=== PATIENT | male | born 1935 | race Caucasian/White ===

== ENCOUNTER 2016-10-29 16:31 | Inpatient (IN) | payer MEDICARE, OTHER ==
[2016-10-29] MEDS ORDERED: COREG3.125 M1 PO ×2 (16:52→17:51)
[2016-10-29] MEDS ORDERED: LIPITOR80 M1 PO (16:52)
[2016-10-29] MEDS ORDERED: ROBAXIN500 M1 PO (16:53)
[2016-10-29] MEDS ORDERED: NORCO 5-325 TA1 EACH PO (16:53)
[2016-10-29] MEDS ORDERED: FLOMAX0.4 M1 PO (16:53)
[2016-10-29] MEDS ORDERED: ALDACTONE25 M1 PO (16:54)
[2016-10-29] MEDS ORDERED: SINGULAIR10 M1 PO (16:54)
[2016-10-29] MEDS ORDERED: OMEPRAZOLE40 M2 PO (16:54)
[2016-10-29] MEDS ORDERED: PROBIOTIC1 EAC9 PO (16:54)
[2016-10-29] MEDS ORDERED: COUMADIN3 M1 PO (16:55)
[2016-10-29] MEDS ORDERED: [UNRECOGNIZED DRUG - OTHER] PO (17:55)
[2016-10-29] MEDS ORDERED: [UNRECOGNIZED DRUG - OTHER] (17:57)
[2016-10-29] MEDS ORDERED: ASPIRIN EC81 MG PO (17:57)
[2016-10-30 02:19] LABS: BASO % 0.1 % (0-2); EOS % 0.1 % (0-7); HCT-HEMATOCRIT 44.3 % (36.0-53.5); HGB-HEMOGLOBIN 15.2 gm/dl (13.5-17.0); IMMATURE GRANULOCYTES ABSOLUTE 0.06 tho/cmm (0-0.03); IMMATURE GRANULOCYTES PERCENT 0.4 % (0-0.3); LYMPH % 3.7 % (20-45); LYMPH ABSOLUTE COUNT 0.6 tho/cmm (0.8-4.5); MCH (MEAN CORPUSCULAR HGB) 31.8 pg (28.0-32.0); MCHC MEAN CORPUSCULAR HGB CONC 34.3 % (32.0-36.0); MCV (MEAN CELL VOLUME) 92.7 fl (82.0-96.0); MEAN PLATELET VOLUME 9.9 cmc (9.4-12.4); MONO % 9.6 % (0-12); MONOCYTE ABSOLUTE COUNT 1.5 tho/cmm (0.0-1.2); NEUTROPHIL ABSOLUTE COUNT 13.6 tho/cmm (1.6-8.0); NEUTROPHIL-AUTOMATED 13.6 tho/cmm (1.6-8.0); NEUTROPHILS % 86.1 % (40-80); PLATELET COUNT 125 tho/cmm (150-450); RED BLOOD COUNT 4.78 mil/cmm (4.40-5.70); RED CELL DISTRIBUTION WIDTH 14.7 % (12.4-16.4); WHITE BLOOD COUNT 15.8 tho/cmm (4.0-10.0)
[2016-10-30 02:22] LABS: INR 2.1 INR (0.9-1.1)
[2016-10-30 02:43] LABS: ALB/GLOB RATIO 0.9 (0.8-2.0); ALKALINE PHOSPHATASE 84 U/L (33-138); ALT/SGPT 79 U/L (12-78); AMYLASE 37 U/L (20-90); ANION GAP 12 mmol/L (0-20); AST/SGOT 122 U/L (10-40); BILIRUBIN,TOTAL 1.7 mg/dl (0.0-1.5); BLOOD UREA NITROGEN 17 mg/dl (6-24); CALCIUM 9.2 mg/dl (8.5-10.5); CARBON DIOXIDE-VENOUS 25 mmol/L (22-32); CHLORIDE 107 mmol/l (96-110); CREATININE 1.36 mg/dl (0.60-1.30); GLUCOSE 138 mg/dL (70-110); LIPASE 120 U/L (73-393); POTASSIUM 4.6 mmol/L (3.7-5.1); SODIUM 139 mmol/L (135-145); eGFR VALUE FOR BLACK 56 mL/Min
--- NOTE | 2016-10-30 20:12 | NUR ---
VIRTUAL CARE NOTE: ASSESSMENT DEFERRED. PT [place]. APPEARS TO BE RESTING AT THIS TIME. NO FAMILY PRESENT. WILL CONTINUE WITH CHART REVIEW.
[2016-10-30 23:26] LABS: INR 1.7 INR (0.9-1.1)
[2016-10-30 23:36] LABS: PROTHROMBIN TIME 20.2 SECONDS (9.0-13.6)
[2016-10-31 04:30] LABS: BASO % 0.1 % (0-2); EOS % 0.1 % (0-7); HCT-HEMATOCRIT 39.5 % (36.0-53.5); HGB-HEMOGLOBIN 13.5 gm/dl (13.5-17.0); IMMATURE GRANULOCYTES ABSOLUTE 0.04 tho/cmm (0-0.03); IMMATURE GRANULOCYTES PERCENT 0.3 % (0-0.3); LYMPH ABSOLUTE COUNT 0.8 tho/cmm (0.8-4.5); MCH (MEAN CORPUSCULAR HGB) 31.6 pg (28.0-32.0); MCHC MEAN CORPUSCULAR HGB CONC 34.2 % (32.0-36.0); MCV (MEAN CELL VOLUME) 92.5 fl (82.0-96.0); MEAN PLATELET VOLUME 9.7 cmc (9.4-12.4); MONO % 10.4 % (0-12); MONOCYTE ABSOLUTE COUNT 1.7 tho/cmm (0.0-1.2); NEUTROPHIL ABSOLUTE COUNT 13.3 tho/cmm (1.6-8.0); NEUTROPHIL-AUTOMATED 13.3 tho/cmm (1.6-8.0); NEUTROPHILS % 84.1 % (40-80); PLATELET COUNT 105 tho/cmm (150-450); RED BLOOD COUNT 4.27 mil/cmm (4.40-5.70); RED CELL DISTRIBUTION WIDTH 14.9 % (12.4-16.4); WHITE BLOOD COUNT 15.8 tho/cmm (4.0-10.0)
[2016-10-31 04:44] LABS: INR 1.6 INR (0.9-1.1); PROTHROMBIN TIME 19.1 SECONDS (9.0-13.6)
[2016-10-31 04:50] LABS: ANION GAP 11 mmol/L (0-20); BLOOD UREA NITROGEN 18 mg/dl (6-24); CALCIUM 9.3 mg/dl (8.5-10.5); CARBON DIOXIDE-VENOUS 25 mmol/L (22-32); CHLORIDE 107 mmol/l (96-110); CREATININE 1.54 mg/dl (0.60-1.30); GLUCOSE 127 mg/dL (70-110); POTASSIUM 4.1 mmol/L (3.7-5.1); SODIUM 139 mmol/L (135-145); eGFR VALUE FOR BLACK 48 mL/Min
[2016-10-31 10:25] LABS: INR 1.4 INR (0.9-1.1); PROTHROMBIN TIME 16.7 SECONDS (9.0-13.6)
[2016-11-01 04:40] LABS: BASO % 0.1 % (0-2); HCT-HEMATOCRIT 36.7 % (36.0-53.5); HGB-HEMOGLOBIN 12.5 gm/dl (13.5-17.0); IMMATURE GRANULOCYTES ABSOLUTE 0.03 tho/cmm (0-0.03); IMMATURE GRANULOCYTES PERCENT 0.2 % (0-0.3); LYMPH % 2.8 % (20-45); LYMPH ABSOLUTE COUNT 0.4 tho/cmm (0.8-4.5); MCH (MEAN CORPUSCULAR HGB) 31.6 pg (28.0-32.0); MCHC MEAN CORPUSCULAR HGB CONC 34.1 % (32.0-36.0); MCV (MEAN CELL VOLUME) 92.7 fl (82.0-96.0); MEAN PLATELET VOLUME 10.2 cmc (9.4-12.4); MONO % 6.3 % (0-12); MONOCYTE ABSOLUTE COUNT 0.9 tho/cmm (0.0-1.2); NEUTROPHIL ABSOLUTE COUNT 12.2 tho/cmm (1.6-8.0); NEUTROPHIL-AUTOMATED 12.2 tho/cmm (1.6-8.0); NEUTROPHILS % 90.6 % (40-80); PLATELET COUNT 92 tho/cmm (150-450); RED BLOOD COUNT 3.96 mil/cmm (4.40-5.70); RED CELL DISTRIBUTION WIDTH 14.7 % (12.4-16.4); WHITE BLOOD COUNT 13.5 tho/cmm (4.0-10.0)
[2016-11-01 05:07] LABS: INR 1.4 INR (0.9-1.1); PROTHROMBIN TIME 16.3 SECONDS (9.0-13.6)
[2016-11-01 05:17] LABS: ANION GAP 13 mmol/L (0-20); BLOOD UREA NITROGEN 20 mg/dl (6-24); CARBON DIOXIDE-VENOUS 24 mmol/L (22-32); CHLORIDE 107 mmol/l (96-110); CREATININE 1.37 mg/dl (0.60-1.30); GLUCOSE 145 mg/dL (70-110); POTASSIUM 4.1 mmol/L (3.7-5.1); SODIUM 140 mmol/L (135-145); eGFR VALUE FOR BLACK 56 mL/Min
--- NOTE | 2016-11-01 12:44 | NUR ---
virtual care note: attempted to talk with pt via the virtual system, but he is very confused and is unable to find me on his tv screen. He is also hard of hearing, making it rather difficult to communicate with him. he appears stable, in no distress. does have a recent history of post operative delirium, which could be contributing to the above issues with communication. will check with his bedside nurse to see if family will be visiting at any point this shift. there was a probability the pt would be dismissed today, but given his new onset confusion, he will likely be staying another day. will continue to monitor. electronic chart reviewed.
[2016-11-02 04:39] LABS: EOS % 0.7 % (0-7); EOSINOPHIL ABSOLUTE COUNT 0.1 tho/cmm (0.0-0.7); HGB-HEMOGLOBIN 13.1 gm/dl (13.5-17.0); IMMATURE GRANULOCYTES ABSOLUTE 0.03 tho/cmm (0-0.03); IMMATURE GRANULOCYTES PERCENT 0.2 % (0-0.3); LYMPH % 6.1 % (20-45); LYMPH ABSOLUTE COUNT 0.7 tho/cmm (0.8-4.5); MCH (MEAN CORPUSCULAR HGB) 31.2 pg (28.0-32.0); MCHC MEAN CORPUSCULAR HGB CONC 33.6 % (32.0-36.0); MCV (MEAN CELL VOLUME) 92.9 fl (82.0-96.0); MEAN PLATELET VOLUME 10.8 cmc (9.4-12.4); MONO % 7.7 % (0-12); MONOCYTE ABSOLUTE COUNT 0.9 tho/cmm (0.0-1.2); NEUTROPHIL ABSOLUTE COUNT 10.4 tho/cmm (1.6-8.0); NEUTROPHIL-AUTOMATED 10.4 tho/cmm (1.6-8.0); NEUTROPHILS % 85.3 % (40-80); PLATELET COUNT 137 tho/cmm (150-450); RED CELL DISTRIBUTION WIDTH 14.8 % (12.4-16.4); WHITE BLOOD COUNT 12.1 tho/cmm (4.0-10.0)
[2016-11-02 04:48] LABS: ALB/GLOB RATIO 0.7 (0.8-2.0); ALBUMIN 2.8 g/dl (3.5-5.0); ALKALINE PHOSPHATASE 111 U/L (33-138); ALT/SGPT 88 U/L (12-78); ANION GAP 14 mmol/L (0-20); AST/SGOT 72 U/L (10-40); BILIRUBIN,DIRECT 0.3 mg/dl (0.0-0.3); BILIRUBIN,INDIRECT 0.7 mg/dL (0.0-1.0); BLOOD UREA NITROGEN 26 mg/dl (6-24); CALCIUM 9.4 mg/dl (8.5-10.5); CARBON DIOXIDE-VENOUS 24 mmol/L (22-32); CHLORIDE 106 mmol/l (96-110); CREATININE 1.59 mg/dl (0.60-1.30); GLUCOSE 130 mg/dL (70-110); POTASSIUM 3.9 mmol/L (3.7-5.1); SODIUM 140 mmol/L (135-145); eGFR VALUE FOR BLACK 46 mL/Min
[2016-11-02 04:59] LABS: INR 1.2 INR (0.9-1.1); PROTHROMBIN TIME 14.1 SECONDS (9.0-13.6)
[2016-11-02] MEDS ORDERED: TYLENOL325 M2 PO (10:50)
[2016-11-02] MEDS ORDERED: STOP THE FOLLOWING: (10:51)
== END 2016-11-02 11:30 | DRG 417 ==
LOC: 5WD 16:31 → ORW 10-31 12:00 → PACU 10-31 14:07 → 5WD 10-31 15:10
PROVIDERS: Internal Medicine; ADMIT Family Medicine
PROC: 0FT44ZZ Resection of Gallbladder, Percutaneous Endoscopic Approach (ICD-10-PCS; principal; 2016-10-31)
DX: K80.12 Calculus of gallbladder with acute and chronic cholecystitis without obstruction (principal); G92 Toxic encephalopathy; N17.9 Acute kidney failure, unspecified; F05 Delirium due to known physiological condition; D69.6 Thrombocytopenia, unspecified; I25.10 Atherosclerotic heart disease of native coronary artery without angina pectoris; I10 Essential (primary) hypertension; E78.5 Hyperlipidemia, unspecified; I48.2 Chronic atrial fibrillation; E03.9 Hypothyroidism, unspecified; N40.0 Benign prostatic hyperplasia without lower urinary tract symptoms; G47.33 Obstructive sleep apnea (adult) (pediatric); Z95.1 Presence of aortocoronary bypass graft; Z95.2 Presence of prosthetic heart valve; Z79.01 Long term (current) use of anticoagulants; Z95.0 Presence of cardiac pacemaker; T41.45XA Adverse effect of unspecified anesthetic, initial encounter; Y92.239 Unspecified place in hospital as the place of occurrence of the external cause
CPT/HCPCS: J1630; J2543; J3010; J3430; J7030; P9017